=== PATIENT | male | born 1960 | race Hispanic/Latino ===

== ENCOUNTER → 2020-05-29 | Outpatient (RCR) | payer BC | LOC: PT 05-15 15:01 | PROVIDERS: ATTEND Specialist | DX: M17.0 Bilateral primary osteoarthritis of knee (principal) ==

== ENCOUNTER 2020-06-07 16:00 | Outpatient (RCR) | payer BC | END 2020-06-28 | LOC: PT 16:00 | PROVIDERS: ATTEND Specialist | DX: M17.0 Bilateral primary osteoarthritis of knee (principal); M62.81 Muscle weakness (generalized); M25.661 Stiffness of right knee, not elsewhere classified; R26.89 Other abnormalities of gait and mobility ==